=== PATIENT | male | born 1950 | race Native Hawaiian/Other Pacific Islander ===

== ENCOUNTER 2018-06-05 08:37 | Outpatient (CLI) | payer MEDICARE ==
[2018-06-05 11:24] LABS: Hematocrit 40.6 % (35.5-45.6); Hemoglobin 13.8 gm/dl (11.8-15.2); Mean Corpuscular HGB Conc 34 % (32-34); Mean Corpuscular Volume 87 fl (84-94); Platelet Count 240 K/mm3 (140-440); Red Blood Count 4.68 M/mm3 (3.65-5.03); Red Cell Distribution Width 13.7 % (13.2-15.2)
[2018-06-05 11:46] LABS: Alanine Aminotransferase 19 units/L (7-56); Albumin 3.9 g/dL (3.9-5); BUN/Creatinine Ratio 19; Blood Urea Nitrogen 19 mg/dL (9-20); Calcium 7.5 mg/dL (8.4-10.2); Hemolysis Index 3; LDL Cholesterol,Direct 115 mg/dL (50-130)
[2018-06-05 11:59] LABS: Chol/HDL Ratio 4.08 %; HDL Cholesterol 37 mg/dL (40-59)
== END 2018-06-05 08:38 | disposition home or self-care (01) ==
LOC: LAB 08:37
PROVIDERS: ATTEND Internal Medicine
DX: Z00.01 Encounter for general adult medical examination with abnormal findings (principal); I10 Essential (primary) hypertension; E66.01 Morbid (severe) obesity due to excess calories; R73.9 Hyperglycemia, unspecified
CPT/HCPCS: 36415; 80053; 80061; 82306; 82607; 83036; 84443; 85027

== ENCOUNTER 2018-08-05 09:57 | Outpatient (CLI) | payer MEDICARE ==
--- NOTE | 2018-08-05 10:56 | XRay Report ---
BILATERAL KNEES STANDING, 2 VIEWS HISTORY: Primary osteoarthritis of the knee. FINDINGS: Normal bone mineralization. Moderate medial compartment joint space narrowing is identified in both knees. Mild retropatellar spurring is identified in both knees. There is relative sparing of the lateral compartments. No evidence for fracture, bone lesion or osteochondral defect. No significant joint effusions are identified. IMPRESSION: Mild to moderate bicompartmental osteoarthritis as described.
== END 2018-08-05 09:58 | disposition home or self-care (01) ==
LOC: XRAY 09:57
PROVIDERS: ATTEND Orthopaedic Surgery
DX: M17.0 Bilateral primary osteoarthritis of knee (principal); I10 Essential (primary) hypertension
CPT/HCPCS: 73565

== ENCOUNTER 2018-08-21 05:49 | Inpatient (IN) | payer MEDICARE ==
[2018-08-18 11:17] LABS: Basophils # (Auto) 0.1 K/mm3 (0.0-0.1); Basophils % (Auto) 0.6 % (0.0-1.8); Eosinophils # (Auto) 0.1 K/mm3 (0.0-0.4); Eosinophils % (Auto) 1.3 % (0.0-4.3); Hematocrit 41.2 % (35.5-45.6); Hemoglobin 14.2 gm/dl (11.8-15.2); Lymphocytes # (Auto) 1.3 K/mm3 (1.2-5.4); Lymphocytes % (Auto) 12.7 % (13.4-35.0); Mean Corpuscular HGB Conc 34 % (32-34); Mean Corpuscular Volume 87 fl (84-94); Monocytes # (Auto) 0.5 K/mm3 (0.0-0.8); Monocytes % (Auto) 5.4 % (0.0-7.3); Platelet Count 213 K/mm3 (140-440); Red Blood Count 4.74 M/mm3 (3.65-5.03); Red Cell Distribution Width 14.1 % (13.2-15.2)
--- NOTE | 2018-08-18 11:27 | Anesthesia Consultation ---
Anesthesia Consult and Med Hx Date of service: 08/18/18 - Airway Anesthetic Teeth Evaluation: Good ROM Head & Neck: Adequate Mental/Hyoid Distance: Adequate Mallampati Class: Class III Intubation Access Assessment: Possibly Difficult - Pulmonary Exam CTA: Yes - Cardiac Exam Cardiac Exam: RRR - Pre-Operative Health Status ASA Pre-Surgery Classification: ASA2 Proposed Anesthetic Plan: General Nerve Block: Adductor Canal - Pulmonary Hx Smoking: Yes (social smoking only) Hx Asthma: No Hx Respiratory Symptoms: No COPD: No Hx Sleep Apnea: Yes (no CPAP) - Cardiovascular System Hx Hypertension: Yes Hx Heart Attack/AMI: No Hx Percutaneous Transluminal Coronary Angioplasty (PTCA): No - Central Nervous System CVA: No - Gastrointestinal Hx Gastroesophageal Reflux Disease: Yes (diet controlled) - Endocrine Hx Renal Disease: No Hx Liver Disease: No Hx Non-Insulin Dependent Diabetes: Yes Hx Thyroid Disease: No - Other Systems Hx Obesity: Yes - Additional Comments Anesthesia Medical History Comments: No hx anesthetic complications. Granddaughter served as bundle tier and labeler per patient request.
[2018-08-18 11:31] LABS: Alanine Aminotransferase 15 units/L (7-56); Albumin 3.8 g/dL (3.9-5); BUN/Creatinine Ratio 14; Blood Urea Nitrogen 14 mg/dL (9-20); Hemolysis Index 27
[2018-08-21] MEDS ORDERED: SUBLIMAZE IV PRN ×2 (06:00→07:30)
[2018-08-21] MEDS ORDERED: VERSED IV NR (06:00)
[2018-08-21] MEDS ORDERED: ANCEF/STERILE WATER 2 GM/20 ML IV NR (06:00)
[2018-08-21] MEDS ORDERED: NEURONTIN PO NR (06:00)
[2018-08-21] MEDS: LACTATED RINGERS 1,000 ML IV SCH ×2 (06:50→16:08)
[2018-08-21] MEDS ORDERED: MARCAINE 0.5% INFILTRATI ONE ×3 (07:20→08:50)
[2018-08-21] MEDS ORDERED: TORADOL ONE (07:20)
--- NOTE | 2018-08-21 07:20 | Anesthesia Day of Surgery ---
Anesthesia Day of Surgery - Day of Surgery Patient Examined: Yes Patient H&P Reviewed: Yes Patient is NPO: Yes
[2018-08-21] MEDS ORDERED: MARCAINE-EPI 0.5%-1:200,000 INFILTRATI ONE (07:21)
[2018-08-21] MEDS ORDERED: TRANEXAMIC ACID ONE (07:21)
[2018-08-21] MEDS ORDERED: MORPHINE ONE (07:21)
[2018-08-21] MEDS ORDERED: NACL 0.9% 100 ML ONE ×2 (07:21→07:22)
[2018-08-21] MEDS ORDERED: NACL 0.9% 50 ML ONE (07:22)
[2018-08-21] MEDS ORDERED: DIPRIVAN 10 MG/ML IV ONE (07:38)
[2018-08-21] MEDS ORDERED: ZOFRAN ONE ×2 (07:38→10:06)
[2018-08-21] MEDS ORDERED: ZEMURON IV ONE (07:38)
[2018-08-21] MEDS ORDERED: SUBLIMAZE ONE (07:38)
[2018-08-21] MEDS ORDERED: NACL 0.9% 1000 ML 1,000 ML ONE ×2 (08:28→08:29)
[2018-08-21] MEDS ORDERED: LACTATED RINGERS 1,000 ML ONE (08:29)
[2018-08-21] MEDS ORDERED: NACL P/F VIAL (10 ML) 10 ML ONE (08:29)
[2018-08-21] MEDS ORDERED: WATER FOR IRRIG STERILE IR ONE (08:50)
[2018-08-21] MEDS ORDERED: NACL 0.9% IR ONE (08:50)
[2018-08-21] MEDS ORDERED: TORADOL IV ONE (08:50)
[2018-08-21] MEDS ORDERED: MORPHINE IM ONE (08:50)
--- NOTE | 2018-08-21 10:24 | Procedure Note ---
Date of procedure: 08/21/18 Pre-op diagnosis: severe arthritis right knee Post-op diagnosis: same Procedure: Right total knee arthroplasty Procedure The patient was brought to the or after the femoral nerve block and preoperative holding, he was placed in the or table in supine position following induction with Mac anesthesia the patient's right lower extremity was prepped and draped in the usual sterile manner. A timeout procedure was done to identify the patient and the correct operative site The leg was exsanguinated followed by insufflation of the pneumatic tourniquet to 300 mmHg. The midline incision was made centered over the patella this is taken down distally towards due to multiple medical incision was carried down sharply through skin and subcutaneous A sub-brow cyst approach was used after elevating the vastus off the distal femur. The knee was flexed to 90 following O's examination revealed typical where along the medial lateral compartments with peripheral osteophytes and bare bone in some places followinga large drill bit was used to enter the distal femoral canal following this the distal femoral cutting was applied approximately 8-9 mm of bone was resected next the attention was turned to the proximal tibia using the external alignment again 8-9 mL of proximal tibia was resected care was taken to protect the medial and lateral collateral ligaments the cruciate ligaments were sacrificed longus sizing of the femoral component was performed a 3 femoral component was selected this was followed by application of the 4 in 1 cutting block care was taken to resect the anterior posterior as well as solution at this at this point in time the knee was sized A flexion and extension Of 10 mm was selected this was followed by application of the trial components the knee was then taken to or range of motion and was found to be stable following this fixation holes were applied to both the distal femur and proximal tibia care was taken to remove the medial lateral menisci as well as any excess bone and soft tissue debris the knee was then copiously irrigated using pulse lavage The bone cement was mixed the bone bleeding surfaces were wiped dry using sterile gauze for menisci tibial component was inserted using the cement technique the 11 mm polyethylene spacer was applied and secured this was followed by placement of the femoral component again excess cement was removed the knee was then held in flexion ostomy extension until the cement hardened following hardening of cement again a second look was performed and the residual soft tissue N cement debris were removed at this time the knee was then taken through a range of motion and was found to be stable next the Carlos A's incision was repaired using #1 Vicryl in interrupted [id number] suture pattern the subcutaneous and skin were closed in a routine manner. Dressings were applied the patient tolerated the procedure the retinal complications he was then taken to postanesthesia recovery Anesthesia: HATTIE Surgeon: AMARA ST Communications Professional: DAYSI SOSA Estimated blood loss: minimal Pathology: list (bone fragments right knee) Specimen disposition: to lab Condition: stable Disposition: PACU
[2018-08-21] MEDS ORDERED: BLOXIVERZ ONE (10:34)
[2018-08-21] MEDS ORDERED: ROBINUL ONE (10:34)
[2018-08-21] MEDS ORDERED: SODIUM CHLORIDE FLUSH SYRINGE 10 ML IV SCH (11:00)
[2018-08-21] MEDS: ANCEF/NS 1 GM/50 ML 1 GM/50 ML BAG IV SCH ×2 (16:09→23:55)
[2018-08-21] MEDS: MORPHINE IV PRN (16:20)
[2018-08-21] MEDS: ZOFRAN IV PRN (17:08)
--- NOTE | 2018-08-21 17:18 | Post Anesthesia Evaluation ---
- Post Anesthesia Evaluation Patient Participated: Yes Airway Patent: Yes Stable Respiratory Function: Yes Nausea/Vomiting: No Temp > 96.8F: Yes Pain Manageable: Yes Adequeate Hydration: Yes Anesthesia Complications: No Block Receding Appropriately: No (block for post op analgesia)
[2018-08-21] MEDS: NORCO 5/325 PO PRN (23:59)
[2018-08-22] MEDS: LACTATED RINGERS 1,000 ML IV SCH ×2 (00:03→14:36)
[2018-08-22] MEDS: MORPHINE IV PRN ×2 (03:41→11:22)
[2018-08-22] MEDS: IBUPROFEN PO PRN (03:45)
[2018-08-22] MEDS: LOVENOX SUB-Q SCH (09:20)
[2018-08-22] MEDS: NORCO 5/325 PO PRN ×2 (10:17→22:16)
[2018-08-22 10:27] LABS: Hematocrit 32.2 % (35.5-45.6); Hemoglobin 11.2 gm/dl (11.8-15.2)
--- NOTE | 2018-08-22 17:06 | Consultation ---
History of Present Illness - Reason for Consult Consult date: 08/22/18 Medical management of hypertension - History of Present Illness Patient is a 68 yo man with a history of hypertension and OA who presented to [facility] ED for elective Right TKR. Hospitalist consulted for hypertension PMH: as hpi PSH: colonoscopy with polypectomy, prostate bx was benign SH: occassion cigarette, once per month, no ETOH or drug abuse FH: hypertension ROS: Constitutional: denies: fever ENT: denies: throat or neck pain Respiratory: denies: cough, shortness of breath Cardiovascular: denies: chest pain Endocrine: denies unexplained weight loss or gain Gastrointestinal: denies: abdominal pain, nausea Genitourinary: denies: dysuria Rectal: denies no incontinence, no bleeding, no itching, no discharge Musculoskeletal: denies swelling, myaglia, muscle weakness Skin: denies: rash Neurological: denies: headache Hematological/Lymphatic: denies: easy bleeding or easy bruising Allergic/Immunologic: no urticaria, no allergic rhinitis, no anaphylaxis Psych: denies sadness or hopelessness, SI/HI Medications and Allergies Allergies Allergy/AdvReac Type Severity Reaction Status Date / Time No Known Allergies Allergy Unverified 02/03/14 11:50 Home Medications Medication Instructions Recorded Confirmed Last Taken Type Losartan [Cozaar] 100 mg PO QDAY 08/18/18 08/21/18 08/21/18 05:00 History NIFEdipine [Nifedipine ER] 60 mg PO DAILY 08/18/18 08/21/18 08/21/18 05:00 History Ranitidine HCl [Zantac] 150 mg PO PRN PRN 08/18/18 08/18/18 Unknown History metFORMIN [Glucophage] 500 mg PO QHS 08/18/18 08/21/18 08/20/18 20:00 History Active Meds: Active Medications Acetaminophen/Hydrocodone Bitart ([place] 5/325) 1 each PO Q6H PRN PRN Reason: Pain, Moderate (4-6) Last Admin: 08/22/18 10:17 Dose: 1 each Documented by: Enoxaparin Sodium (Lovenox) 40 mg SUB-Q QDAY SHARAN Last Admin: 08/22/18 09:20 Dose: 40 mg Documented by: Fentanyl (Sublimaze) 100 mcg IV ONCE PRN PRN Reason: sedation for nerve block Last Admin: 08/21/18 07:34 Dose: 100 mcg Documented by: Lactated Ringer's (Lactated Ringers) 1,000 mls @ 100 mls/hr IV DIRECT SHARAN Last Admin: 08/22/18 14:36 Dose: 100 mls/hr Documented by: Ibuprofen (Ibuprofen) 600 mg PO Q6H PRN PRN Reason: Pain, Mild (1-3) Last Admin: 08/22/18 03:45 Dose: 600 mg Documented by: Morphine Sulfate (Morphine) 4 mg IV Q4H PRN PRN Reason: Pain , Severe (7-10) Last Admin: 08/22/18 11:22 Dose: 4 mg Documented by: Ondansetron HCl (Zofran) 4 mg IV Q8H PRN PRN Reason: Nausea And Vomiting Last Admin: 08/21/18 17:08 Dose: 4 mg Documented by: Sodium Chloride (Sodium Chloride Flush Syringe 10 Ml) 10 ml IV PRN SHARAN Exam - Physical Exam Narrative exam: Gen: WDWN, NAD, Awake, Alert, Orientated HEENT: NCAT, EOMI, PERRL, OP Clear Neck: supple, no adenopathy, no thyromegaly, no JVD CVS/Heart: RRR, normal S1S2, pulses present bilaterally Chest/Lungs: CTA B, Symmetrical chest expansion, good air entry bilaterally GI/Abdomen: soft, NTND, good bowel sounds, no guarding or rebound /Bladder: no suprapubic tenderness, no CVA or paraspinal tenderness Extermity/Skin: right knee swelling no obvious rash MSK: FROM x 3, right knee LROM Neuro: CN 2-12 grossly intact, no new focal deficits Psych: calm - Constitutional Vitals: Temp Pulse Resp BP Pulse Ox 98.7 F 74 19 137/68 97 08/22/18 08:20 08/22/18 08:21 08/22/18 08:20 08/22/18 03:26 08/22/18 08:21 Results - Labs CBC & Chem 7: 08/22/18 09:34 08/18/18 10:45 Labs: Abnormal lab results 08/22/18 Range/Units 09:34 Hgb 11.2 L (11.8-15.2) gm/dl Hct 32.2 L (35.5-45.6) % Assessment and Plan Patient is a 68 yo man with a history of hypertension and OA who presented to [facility] ED for elective Right TKR. Hospitalist consulted for hypertension Hypertension: low salt diet OA s/p Right TKR: per Ortho Drop HCT: monitor h/h, repeat cbc in am DVT per Ortho
[2018-08-23] MEDS: NORCO 5/325 PO PRN ×3 (07:10→22:15)
[2018-08-23] MEDS: LOVENOX SUB-Q SCH (10:22)
[2018-08-23] MEDS: IBUPROFEN PO PRN ×2 (10:23→17:35)
--- NOTE | 2018-08-23 14:53 | Progress Note ---
Assessment and Plan Assessment and plan: Patient is a 68 yo man with a history of hypertension and OA who presented to [facility] ED for elective Right TKR. Hospitalist consulted for hypertension Hypertension: low salt diet OA s/p Right TKR: per Ortho Drop HCT: monitor h/h, repeat cbc in am DVT per Ortho History Interval history: Patient was seen and examined. Follow-up on current diagnosis Hypertension. No overnight events reported to me. Patient denies any chest pain, shortness breath, nausea/vomiting or severe headaches. Imaging, nursing note, chart, labs and old chart reviewed. Discussed with patient. 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 Hospitalist Physical - Physical exam Narrative exam: Gen: WDWN, NAD, Awake, Alert, Orientated HEENT: NCAT, EOMI, PERRL, OP Clear Neck: supple, no adenopathy, no thyromegaly, no JVD CVS/Heart: RRR, normal S1S2, pulses present bilaterally Chest/Lungs: CTA B, Symmetrical chest expansion, good air entry bilaterally GI/Abdomen: soft, NTND, good bowel sounds, no guarding or rebound /Bladder: no suprapubic tenderness, no CVA or paraspinal tenderness Extermity/Skin: right knee and leg swelling no obvious rash MSK: FROM x 3, right knee LROM Neuro: CN 2-12 grossly intact, no new focal deficits Psych: calm - Constitutional Vitals: Temp Pulse Resp BP Pulse Ox 99.0 F 73 18 155/82 95 08/23/18 08:19 08/23/18 08:19 08/23/18 08:19 08/23/18 08:19 08/23/18 10:00 Results - Labs CBC & Chem 7: 08/22/18 09:34 08/18/18 10:45 Labs: Laboratory Last Values WBC 9.9 K/mm3 (4.5-11.0) 08/18/18 10:45 RBC 4.74 M/mm3 (3.65-5.03) 08/18/18 10:45 Hgb 11.2 gm/dl (11.8-15.2) L 08/22/18 09:34 Hct 32.2 % (35.5-45.6) L 08/22/18 09:34 MCV 87 fl (84-94) 08/18/18 10:45 MCH 30 pg (28-32) 08/18/18 10:45 MCHC 34 % (32-34) 08/18/18 10:45 RDW 14.1 % (13.2-15.2) 08/18/18 10:45 Plt Count 213 K/mm3 (140-440) 08/18/18 10:45 Lymph % (Auto) 12.7 % (13.4-35.0) L 08/18/18 10:45 [place] % (Auto) 5.4 % (0.0-7.3) 08/18/18 10:45 Eos % (Auto) 1.3 % (0.0-4.3) 08/18/18 10:45 Baso % (Auto) 0.6 % (0.0-1.8) 08/18/18 10:45 Lymph # 1.3 K/mm3 (1.2-5.4) 08/18/18 10:45 [place] # 0.5 K/mm3 (0.0-0.8) 08/18/18 10:45 Eos # 0.1 K/mm3 (0.0-0.4) 08/18/18 10:45 Baso # 0.1 K/mm3 (0.0-0.1) 08/18/18 10:45 Seg Neutrophils % 80.0 % (40.0-70.0) H 08/18/18 10:45 Seg Neutrophils # 7.9 K/mm3 (1.8-7.7) H 08/18/18 10:45 Sodium 138 mmol/L (137-145) 08/18/18 10:45 Potassium 3.7 mmol/L (3.6-5.0) 08/18/18 10:45 Chloride 99.3 mmol/L (98-107) 08/18/18 10:45 Carbon Dioxide 26 mmol/L (22-30) 08/18/18 10:45 16 mmol/L 08/18/18 10:45 BUN 14 mg/dL (9-20) 08/18/18 10:45 1.0 mg/dL (0.8-1.5) 08/18/18 10:45 Estimated GFR > 60 ml/min 08/18/18 10:45 14 % 08/18/18 10:45 Glucose 101 mg/dL (75-100) H 08/18/18 10:45 POC Glucose 113 (70-105) H 08/21/18 10:48 Calcium 8.0 mg/dL (8.4-10.2) L 08/18/18 10:45 0.80 mg/dL (0.1-1.2) 08/18/18 10:45 AST 16 units/L (5-40) 08/18/18 10:45 ALT 15 units/L (7-56) 08/18/18 10:45 96 units/L (35-129) 08/18/18 10:45 7.5 g/dL (6.3-8.2) 08/18/18 10:45 3.8 g/dL (3.9-5) L 08/18/18 10:45 1.0 % 08/18/18 10:45 Active Medications - Current Medications Current Medications: Generic Name Dose Route Start Last Admin Trade Name Freq PRN Reason Stop Dose Admin Acetaminophen/Hydrocodone Bitart 1 each 08/21/18 10:18 08/23/18 13:17 [place] 5/325 PO 1 each Q6H PRN Administration Pain, Moderate (4-6) Enoxaparin Sodium 40 mg 08/22/18 10:00 08/23/18 10:22 Lovenox SUB-Q 40 mg QDAY SHARAN Administration Fentanyl 100 mcg 08/21/18 06:00 08/21/18 07:34 Sublimaze IV 100 mcg ONCE PRN Administration sedation for nerve block Ibuprofen 600 mg 08/21/18 10:18 08/23/18 10:23 Ibuprofen PO 600 mg Q6H PRN Administration Pain, Mild (1-3) Morphine Sulfate 4 mg 08/21/18 10:18 08/22/18 11:22 Morphine IV 4 mg Q4H PRN Administration Pain , Severe (7-10) Ondansetron HCl 4 mg 08/21/18 10:18 08/21/18 17:08 Zofran IV 4 mg Q8H PRN Administration Nausea And Vomiting Sodium Chloride 10 ml 08/21/18 11:00 Sodium Chloride Flush Syringe 10 Ml IV PRN SHARAN
[2018-08-23] MEDS: PROCARDIA XL PO SCH (22:15)
[2018-08-24] MEDS: NORCO 5/325 PO PRN ×4 (04:59→22:31)
[2018-08-24 05:09] LABS: BUN/Creatinine Ratio 14; Blood Urea Nitrogen 17 mg/dL (9-20); Calcium 7.2 mg/dL (8.4-10.2); Hemolysis Index 2
[2018-08-24 05:12] LABS: Hematocrit 33.3 % (35.5-45.6); Hemoglobin 11.4 gm/dl (11.8-15.2); Mean Corpuscular HGB Conc 34 % (32-34); Mean Corpuscular Volume 86 fl (84-94); Platelet Count 205 K/mm3 (140-440); Red Blood Count 3.86 M/mm3 (3.65-5.03)
[2018-08-24] MEDS: LOVENOX SUB-Q SCH ×2 (07:35→10:00)
[2018-08-24] MEDS: IBUPROFEN PO PRN ×3 (07:36→20:03)
[2018-08-24] MEDS: PROCARDIA XL PO SCH ×2 (07:48→10:00)
[2018-08-24] MEDS ORDERED: K-DUR PO ONE (09:50)
--- NOTE | 2018-08-24 10:51 | XRay Report ---
PROCEDURE: XR KNEE 1-2V RT HISTORY: Post op evaluation. TECHNIQUE: Right knee radiograph, 2 views. COMPARISONS: None currently available. FINDINGS: Total arthroplasty is intact. No loosening or dislodgement. There is no acute fracture. There is no evidence for healing fracture. There is no acute dislocation. There is no cortical destruction to suggest osteomyelitis. There are no suspicious osseous lesions. Soft tissues: Subcutaneous gas, swelling, and joint effusion IMPRESSION: * No acute osseous findings. * Likely post surgical changes in the soft tissues. * Hardware is intact. This document is electronically signed by Anam Story MD., August 24 2018 10:49:38 AM ET
--- NOTE | 2018-08-24 11:32 | Progress Note ---
Assessment and Plan Assessment and plan: Patient is a 68 yo man with a history of hypertension and OA who presented to [facility] ED for elective Right TKR. Hospitalist consulted for hypertension Hypertension: low salt diet OA s/p Right TKR: per Ortho Drop HCT, steady Hypokalemia, replete DVT per Ortho Dispo per Ortho History Interval history: Patient was seen and examined. Follow-up on current diagnosis Hypertension. No overnight events reported to me. Patient denies any chest pain, shortness breath, nausea/vomiting or severe headaches. Imaging, nursing note, chart, labs and old chart reviewed. Discussed with patient. Family at bedside were the Umbrella Supervisor Hospitalist Physical - Physical exam Narrative exam: Gen: WDWN, NAD, Awake, Alert, Orientated HEENT: NCAT, EOMI, PERRL, OP Clear Neck: supple, no adenopathy, no thyromegaly, no JVD CVS/Heart: RRR, normal S1S2, pulses present bilaterally Chest/Lungs: CTA B, Symmetrical chest expansion, good air entry bilaterally GI/Abdomen: soft, NTND, good bowel sounds, no guarding or rebound /Bladder: no suprapubic tenderness, no CVA or paraspinal tenderness Extermity/Skin: right knee and leg swelling no obvious rash MSK: FROM x 3, right knee LROM Neuro: CN 2-12 grossly intact, no new focal deficits Psych: calm - Constitutional Vitals: Temp Pulse Resp BP Pulse Ox 98.2 F 75 16 117/64 94 08/24/18 07:47 08/24/18 07:47 08/24/18 07:47 08/24/18 07:47 08/24/18 08:57 Results - Labs CBC & Chem 7: 08/24/18 04:11 08/24/18 04:11 Labs: Laboratory Last Values WBC 11.5 K/mm3 (4.5-11.0) H 08/24/18 04:11 RBC 3.86 M/mm3 (3.65-5.03) 08/24/18 04:11 Hgb 11.4 gm/dl (11.8-15.2) L 08/24/18 04:11 Hct 33.3 % (35.5-45.6) L 08/24/18 04:11 MCV 86 fl (84-94) 08/24/18 04:11 MCH 30 pg (28-32) 08/24/18 04:11 MCHC 34 % (32-34) 08/24/18 04:11 RDW 14.0 % (13.2-15.2) 08/24/18 04:11 Plt Count 205 K/mm3 (140-440) 08/24/18 04:11 Lymph % (Auto) 12.7 % (13.4-35.0) L 08/18/18 10:45 [place] % (Auto) 5.4 % (0.0-7.3) 08/18/18 10:45 Eos % (Auto) 1.3 % (0.0-4.3) 08/18/18 10:45 Baso % (Auto) 0.6 % (0.0-1.8) 08/18/18 10:45 Lymph # 1.3 K/mm3 (1.2-5.4) 08/18/18 10:45 [place] # 0.5 K/mm3 (0.0-0.8) 08/18/18 10:45 Eos # 0.1 K/mm3 (0.0-0.4) 08/18/18 10:45 Baso # 0.1 K/mm3 (0.0-0.1) 08/18/18 10:45 Seg Neutrophils % 80.0 % (40.0-70.0) H 08/18/18 10:45 Seg Neutrophils # 7.9 K/mm3 (1.8-7.7) H 08/18/18 10:45 Sodium 144 mmol/L (137-145) 08/24/18 04:11 Potassium 3.2 mmol/L (3.6-5.0) L 08/24/18 04:11 Chloride 99.0 mmol/L (98-107) 08/24/18 04:11 Carbon Dioxide 31 mmol/L (22-30) H 08/24/18 04:11 17 mmol/L 08/24/18 04:11 BUN 17 mg/dL (9-20) 08/24/18 04:11 1.2 mg/dL (0.8-1.5) 08/24/18 04:11 Estimated GFR > 60 ml/min 08/24/18 04:11 14 % 08/24/18 04:11 Glucose 114 mg/dL (75-100) H 08/24/18 04:11 POC Glucose 113 (70-105) H 08/21/18 10:48 Calcium 7.2 mg/dL (8.4-10.2) L 08/24/18 04:11 0.80 mg/dL (0.1-1.2) 08/18/18 10:45 AST 16 units/L (5-40) 08/18/18 10:45 ALT 15 units/L (7-56) 08/18/18 10:45 96 units/L (35-129) 08/18/18 10:45 7.5 g/dL (6.3-8.2) 08/18/18 10:45 3.8 g/dL (3.9-5) L 08/18/18 10:45 1.0 % 08/18/18 10:45 Active Medications - Current Medications Current Medications: Generic Name Dose Route Start Last Admin Trade Name Freq PRN Reason Stop Dose Admin Acetaminophen/Hydrocodone Bitart 1 each 08/21/18 10:18 08/24/18 10:57 [place] 5/325 PO 1 each Q6H PRN Administration Pain, Moderate (4-6) Enoxaparin Sodium 40 mg 08/22/18 10:00 08/24/18 10:00 Lovenox SUB-Q Not Given QDAY [facility] Fentanyl 100 mcg 08/21/18 06:00 08/21/18 07:34 Sublimaze IV 100 mcg ONCE PRN Administration sedation for nerve block Ibuprofen 600 mg 08/21/18 10:18 08/24/18 07:36 Ibuprofen PO 600 mg Q6H PRN Administration Pain, Mild (1-3) Morphine Sulfate 4 mg 08/21/18 10:18 08/22/18 11:22 Morphine IV 4 mg Q4H PRN Administration Pain , Severe (7-10) Nifedipine 60 mg 08/23/18 22:00 08/24/18 10:00 Procardia Xl PO Not Given DAILY [facility] Ondansetron HCl 4 mg 08/21/18 10:18 08/21/18 17:08 Zofran IV 4 mg Q8H PRN Administration Nausea And Vomiting Sodium Chloride 10 ml 08/21/18 11:00 Sodium Chloride Flush Syringe 10 Ml IV PRN SHARAN
[2018-08-25 04:51] LABS: Hematocrit 31.9 % (35.5-45.6); Hemoglobin 10.9 gm/dl (11.8-15.2); Mean Corpuscular HGB Conc 34 % (32-34); Mean Corpuscular Volume 88 fl (84-94); Platelet Count 232 K/mm3 (140-440); Red Blood Count 3.64 M/mm3 (3.65-5.03); Red Cell Distribution Width 14.3 % (13.2-15.2)
[2018-08-25 05:03] LABS: BUN/Creatinine Ratio 20; Blood Urea Nitrogen 22 mg/dL (9-20); Calcium 7.3 mg/dL (8.4-10.2); Hemolysis Index 4
[2018-08-25] MEDS: NORCO 5/325 PO PRN ×2 (07:40→13:32)
[2018-08-25] MEDS: PROCARDIA XL PO SCH ×2 (07:41→10:26)
[2018-08-25] MEDS: LOVENOX SUB-Q SCH ×2 (07:42→10:26)
--- NOTE | 2018-08-25 08:34 | Discharge Summary ---
Providers - Providers Date of Admission: 08/21/18 05:49 Date of discharge: 08/29/18 Attending physician: AMARA ST MD 08/21/18 10:18 Consult to Case Management [CONS] Routine Services Needed at Discharge: Home Health Services Physical Therapy 08/21/18 10:21 Physical Therapy Evaluation and Treat [CONS] Routine Comment: Reason For Exam: postoperative evaluation Weight bearing status?: Full wt bearing Assistive devices?: Yes If so list: Walker 08/21/18 21:16 Consult to Physician [CONS] Routine Comment: Consulting Provider: ROSANGELA SIMENTAL Physician Instructions: post op medical mgmt Reason For Exam: medical management Primary care physician: YASEMIN COHEN Hospitalization Reason for admission: Right knee pain Condition: Stable Procedures: Right total knee replacement Hospital course: 68-year-old male who complains of bilateral knee pain and stiffness issue tried conservative treatment with little to no relief plain x-rays were done preoperatively showing moderately severe osteoarthritis right knee patient was admitted and was taken to the operating room where a right total knee replacement was done without complications postoperatively he was seen and evaluated by physical therapy where he was given instructions on daily weightbearing and range of motion exercises. Arrangements were made for home physical therapy via case management services. On post op day 4, he complain of right calf pain and swelling, doppler ultrasound done revealing DVT in posterior tibial vein. After consultation with internal medicine service he was placed on oral antithrombolytics to go along with previous IM lovenox. Arrangements for discharge to home were made but patient's family members requested in-patient rehab therefore requests made but patient's insurance company objected wanting instead home PT and nursing services. After multiple attempts, he eventually discharged to home Disposition: [id number] HOME UNDER [facility] Core Measure Documentation - Palliative Care Palliative Care/ Comfort Measures: Not Applicable - Core Measures Any of the following diagnoses?: DVT/PE, none - VTE Discharge Requirements Deep Vein Thrombosis/Pulmonary Embolism Present on Admission: Yes Has pt received <5 days of overlap therapy or INR<2.0: Yes Anticoagulant overlap therapy prescribed at discharge: Yes Contraindication No Overlap Therapy order at DC: Medical Contraindication - Acute MD Discharge Requirements Aspirin at discharge: No Reason for no aspirin on DC: Medical contraindication - Heart Failure Discharge Requirements MALLY/ARB for LVSD if EF <40%: No Reason for no MALLY/ARB: Medical contraindication - Stroke Discharge Requirements Statin for LDL = or >70 mg/dl on DC: No Reason for no statin on DC: Medical Contraindication Anticoag for atrial fib/atrial flutter: Not Applicable Exam - Physical Exam Narrative exam: Right knee- postop dressings intact no signs of infection negative Homans sign - Constitutional Vitals: Temp Pulse Resp BP Pulse Ox 97.5 F L 67 20 139/74 93 08/25/18 07:39 08/25/18 07:39 08/25/18 07:39 08/25/18 07:39 08/25/18 07:39 General appearance: Present: no acute distress, well-nourished - EENT Eyes: Present: PERRL ENT: hearing intact, clear oral mucosa - Neck Neck: Present: supple, normal ROM - Respiratory Respiratory effort: normal Respiratory: bilateral: CTA - Cardiovascular Heart Sounds: Present: S1 & S2. Absent: rub, click - Extremities Extremities: pulses symmetrical, No edema Peripheral Pulses: within normal limits - Abdominal General gastrointestinal: Present: soft, non-tender, non-distended, normal bowel sounds Male genitourinary: Present: normal - Integumentary Integumentary: Present: clear, warm, dry - Musculoskeletal Musculoskeletal: gait normal, strength equal bilaterally - Psychiatric Psychiatric: appropriate mood/affect, intact judgment & insight - Neurologic Neurologic: CNII-XII intact, moves all extremities Plan Activity: advance as tolerated Weight Bearing Status: Weight Bear as Tolerated Diet: regular Wound: keep clean and dry Special Instructions: physical therapy Durable Medical Equipment Needed Upon Discharge: Walker-Standard, Bedside Commode, Hospital Bed Follow up with: YASEMIN COHEN MD [Primary Care Provider] - [address] MD [Staff Physician] - 7 Days Prescriptions: Apixaban [Eliquis] 10 mg PO Q12HR 6 Days tablet Apixaban [Eliquis] 5 mg PO Q12HR 30 Days tablet Oxycodone HCl/Acetaminophen [Percocet 7.5/325 mg] 1 each PO Q6HR PRN #30 tablet PRN Reason: Pain
--- NOTE | 2018-08-25 09:18 | Progress Note ---
Assessment and Plan Assessment and plan: Patient is a 68 yo man with a history of hypertension and OA who presented to [facility] ED for elective Right TKR. Hospitalist consulted for hypertension Hypertension: low salt diet OA s/p Right TKR: per Ortho Drop HCT, steady Hypokalemia, replete DVT per Ortho Dispo per Ortho History Interval history: Patient was seen and examined. Follow-up on current diagnosis Hypertension. No overnight events reported to me. Patient denies any chest pain, shortness breath, nausea/vomiting or severe headaches. Imaging, nursing note, chart, labs and old chart reviewed. Discussed with patient. Family at bedside were the [employer] Work[employer] Hospitalist Physical - Physical exam Narrative exam: Gen: WDWN, NAD, Awake, Alert, Orientated HEENT: NCAT, EOMI, PERRL, OP Clear Neck: supple, no adenopathy, no thyromegaly, no JVD CVS/Heart: RRR, normal S1S2, pulses present bilaterally Chest/Lungs: CTA B, Symmetrical chest expansion, good air entry bilaterally GI/Abdomen: soft, NTND, good bowel sounds, no guarding or rebound /Bladder: no suprapubic tenderness, no CVA or paraspinal tenderness Extermity/Skin: right knee and leg swelling no obvious rash MSK: FROM x 3, right knee LROM Neuro: CN 2-12 grossly intact, no new focal deficits Psych: calm - Constitutional Vitals: Temp Pulse Resp BP Pulse Ox 97.5 F L 67 20 139/74 93 08/25/18 07:39 08/25/18 07:39 08/25/18 07:39 08/25/18 07:39 08/25/18 07:39 General appearance: Present: no acute distress, well-nourished Results - Labs CBC & Chem 7: 08/25/18 04:16 08/25/18 04:16 Labs: Laboratory Last Values WBC 8.5 K/mm3 (4.5-11.0) 08/25/18 04:16 RBC 3.64 M/mm3 (3.65-5.03) L 08/25/18 04:16 Hgb 10.9 gm/dl (11.8-15.2) L 08/25/18 04:16 Hct 31.9 % (35.5-45.6) L 08/25/18 04:16 MCV 88 fl (84-94) 08/25/18 04:16 MCH 30 pg (28-32) 08/25/18 04:16 MCHC 34 % (32-34) 08/25/18 04:16 RDW 14.3 % (13.2-15.2) 08/25/18 04:16 Plt Count 232 K/mm3 (140-440) 08/25/18 04:16 Lymph % (Auto) 12.7 % (13.4-35.0) L 08/18/18 10:45 [place] % (Auto) 5.4 % (0.0-7.3) 08/18/18 10:45 Eos % (Auto) 1.3 % (0.0-4.3) 08/18/18 10:45 Baso % (Auto) 0.6 % (0.0-1.8) 08/18/18 10:45 Lymph # 1.3 K/mm3 (1.2-5.4) 08/18/18 10:45 [place] # 0.5 K/mm3 (0.0-0.8) 08/18/18 10:45 Eos # 0.1 K/mm3 (0.0-0.4) 08/18/18 10:45 Baso # 0.1 K/mm3 (0.0-0.1) 08/18/18 10:45 Seg Neutrophils % 80.0 % (40.0-70.0) H 08/18/18 10:45 Seg Neutrophils # 7.9 K/mm3 (1.8-7.7) H 08/18/18 10:45 Sodium 144 mmol/L (137-145) 08/25/18 04:16 Potassium 3.5 mmol/L (3.6-5.0) L 08/25/18 04:16 Chloride 101.4 mmol/L (98-107) 08/25/18 04:16 Carbon Dioxide 33 mmol/L (22-30) H 08/25/18 04:16 13 mmol/L 08/25/18 04:16 BUN 22 mg/dL (9-20) H 08/25/18 04:16 1.1 mg/dL (0.8-1.5) 08/25/18 04:16 Estimated GFR > 60 ml/min 08/25/18 04:16 20 % 08/25/18 04:16 Glucose 114 mg/dL (75-100) H 08/25/18 04:16 POC Glucose 113 (70-105) H 08/21/18 10:48 Calcium 7.3 mg/dL (8.4-10.2) L 08/25/18 04:16 0.80 mg/dL (0.1-1.2) 08/18/18 10:45 AST 16 units/L (5-40) 08/18/18 10:45 ALT 15 units/L (7-56) 08/18/18 10:45 96 units/L (35-129) 08/18/18 10:45 7.5 g/dL (6.3-8.2) 08/18/18 10:45 3.8 g/dL (3.9-5) L 08/18/18 10:45 1.0 % 08/18/18 10:45 Active Medications - Current Medications Current Medications: Generic Name Dose Route Start Last Admin Trade Name Freq PRN Reason Stop Dose Admin Acetaminophen/Hydrocodone Bitart 1 each 08/21/18 10:18 08/25/18 07:40 [place] 5/325 PO 1 each Q6H PRN Administration Pain, Moderate (4-6) Enoxaparin Sodium 40 mg 08/22/18 10:00 08/25/18 07:42 Lovenox SUB-Q 40 mg QDAY SHARAN Administration Fentanyl 100 mcg 08/21/18 06:00 08/21/18 07:34 Sublimaze IV 100 mcg ONCE PRN Administration sedation for nerve block Ibuprofen 600 mg 08/21/18 10:18 08/24/18 20:03 Ibuprofen PO 600 mg Q6H PRN Administration Pain, Mild (1-3) Morphine Sulfate 4 mg 08/21/18 10:18 08/22/18 11:22 Morphine IV 4 mg Q4H PRN Administration Pain , Severe (7-10) Nifedipine 60 mg 08/23/18 22:00 08/25/18 07:41 Procardia Xl PO 60 mg DAILY SHARAN Administration Ondansetron HCl 4 mg 08/21/18 10:18 08/21/18 17:08 Zofran IV 4 mg Q8H PRN Administration Nausea And Vomiting Sodium Chloride 10 ml 06/20/19 11:00 Sodium Chloride Flush Syringe 10 Ml IV PRN SHARAN
[2018-08-25] MEDS ORDERED: K-DUR PO ONE (10:30)
--- NOTE | 2018-08-25 10:32 | Vascular Lab Report ---
PROCEDURE: VL VENOUS DUPLEX LE RT TECHNIQUE: Grayscale, color flow and spectral waveform imaging performed of right lower extremity ve ins. HISTORY: right calf pain/swelling s/p Rt TKR COMPARISON: None FINDINGS: There is noncompressibility of right posterior tibial and peroneal veins. No flow seen in these areas . This is compatible with calf DVTs, likely acute. There is appropriate flow and augmentation involving right common femoral vein to the popliteal vein. IMPRESSION: DVT involving right posterior tibial and peroneal veins. This document is electronically signed by Lisseth Garcia MD., August 25 2018 10:30:52 AM ET
[2018-08-25] MEDS: ELIQUIS PO SCH ×2 (12:24→22:11)
[2018-08-25] MEDS: MORPHINE IV PRN ×2 (17:09→22:08)
[2018-08-25] MEDS: ZOFRAN IV PRN (17:11)
[2018-08-26] MEDS: MORPHINE IV PRN ×2 (03:02→17:05)
[2018-08-26] MEDS: PROCARDIA XL PO SCH (09:53)
[2018-08-26] MEDS: ELIQUIS PO SCH ×2 (09:54→21:23)
[2018-08-26] MEDS: NORCO 5/325 PO PRN ×3 (09:59→21:23)
--- NOTE | 2018-08-26 13:34 | Progress Note ---
Assessment and Plan Assessment and plan: Patient is a 68 yo man with a history of hypertension and OA who presented to [facility] ED for elective Right TKR. Hospitalist consulted for hypertension Right lower ext acute DVT: Started on Eliquis. Plan discussed with the patient. Considering the patient was on dvt prophylaxis with this, will recommend outpatient hematology eval Hypertension: low salt diet OA s/p Right TKR: per Ortho Drop HCT, steady Hypokalemia, replete DVT per Ortho Dispo per Ortho History Interval history: Patient seen and examined, resting comfortable but later today began to complain of pain in the legs making discharge to be held By the surgeon Hospitalist Physical - Physical exam Narrative exam: Gen: WDWN, NAD, Awake, Alert, Oriented, HEENT: NCAT, EOMI, PERRL, OP Clear Neck: supple, no adenopathy, no thyromegaly, no JVD CVS/Heart: RRR, normal S1S2, pulses present bilaterally Chest/Lungs: CTA B, Symmetrical chest expansion, good air entry bilaterally GI/Abdomen: soft, NTND, good bowel sounds, no guarding or rebound /Bladder: no suprapubic tenderness, no CVA or paraspinal tenderness Extermity/Skin: right knee and leg swelling no obvious rash MSK: FROM x 3, right knee LROM Neuro: CN 2-12 grossly intact, no new focal deficits Psych: calm - Constitutional Vitals: Temp Pulse Resp BP Pulse Ox 99.4 F 68 20 125/72 94 08/26/18 07:16 08/26/18 07:16 08/26/18 07:16 08/26/18 07:16 08/26/18 07:16 General appearance: Present: no acute distress, well-nourished Results - Labs CBC & Chem 7: 08/25/18 04:16 08/25/18 04:16 Labs: Laboratory Last Values WBC 8.5 K/mm3 (4.5-11.0) 08/25/18 04:16 RBC 3.64 M/mm3 (3.65-5.03) L 08/25/18 04:16 Hgb 10.9 gm/dl (11.8-15.2) L 08/25/18 04:16 Hct 31.9 % (35.5-45.6) L 08/25/18 04:16 MCV 88 fl (84-94) 08/25/18 04:16 MCH 30 pg (28-32) 08/25/18 04:16 MCHC 34 % (32-34) 08/25/18 04:16 RDW 14.3 % (13.2-15.2) 08/25/18 04:16 Plt Count 232 K/mm3 (140-440) 08/25/18 04:16 Lymph % (Auto) 12.7 % (13.4-35.0) L 08/18/18 10:45 [place] % (Auto) 5.4 % (0.0-7.3) 08/18/18 10:45 Eos % (Auto) 1.3 % (0.0-4.3) 08/18/18 10:45 Baso % (Auto) 0.6 % (0.0-1.8) 08/18/18 10:45 Lymph # 1.3 K/mm3 (1.2-5.4) 08/18/18 10:45 [place] # 0.5 K/mm3 (0.0-0.8) 08/18/18 10:45 Eos # 0.1 K/mm3 (0.0-0.4) 08/18/18 10:45 Baso # 0.1 K/mm3 (0.0-0.1) 08/18/18 10:45 Seg Neutrophils % 80.0 % (40.0-70.0) H 08/18/18 10:45 Seg Neutrophils # 7.9 K/mm3 (1.8-7.7) H 08/18/18 10:45 Sodium 144 mmol/L (137-145) 08/25/18 04:16 Potassium 3.5 mmol/L (3.6-5.0) L 08/25/18 04:16 Chloride 101.4 mmol/L (98-107) 08/25/18 04:16 Carbon Dioxide 33 mmol/L (22-30) H 08/25/18 04:16 13 mmol/L 08/25/18 04:16 BUN 22 mg/dL (9-20) H 08/25/18 04:16 1.1 mg/dL (0.8-1.5) 08/25/18 04:16 Estimated GFR > 60 ml/min 08/25/18 04:16 20 % 08/25/18 04:16 Glucose 114 mg/dL (75-100) H 08/25/18 04:16 POC Glucose 113 (70-105) H 08/21/18 10:48 Calcium 7.3 mg/dL (8.4-10.2) L 08/25/18 04:16 0.80 mg/dL (0.1-1.2) 08/18/18 10:45 AST 16 units/L (5-40) 08/18/18 10:45 ALT 15 units/L (7-56) 08/18/18 10:45 96 units/L (35-129) 08/18/18 10:45 7.5 g/dL (6.3-8.2) 08/18/18 10:45 3.8 g/dL (3.9-5) L 08/18/18 10:45 1.0 % 08/18/18 10:45 Active Medications - Current Medications Current Medications: Generic Name Dose Route Start Last Admin Trade Name Freq PRN Reason Stop Dose Admin Acetaminophen/Hydrocodone Bitart 1 each 08/21/18 10:18 08/26/18 09:59 [place] 5/325 PO 1 each Q6H PRN Administration Pain, Moderate (4-6) Apixaban 10 mg 08/25/18 12:00 08/26/18 09:54 Eliquis PO 08/31/18 22:01 10 mg Q12HR SHARAN Administration Protocol Apixaban 5 mg 09/01/18 10:00 Eliquis PO Q12HR SHARAN Fentanyl 100 mcg 08/21/18 06:00 08/21/18 07:34 Sublimaze IV 100 mcg ONCE PRN Administration sedation for nerve block Morphine Sulfate 4 mg 08/21/18 10:18 08/26/18 03:02 Morphine IV 4 mg Q4H PRN Administration Pain , Severe (7-10) Nifedipine 60 mg 08/23/18 22:00 08/26/18 09:53 Procardia Xl PO 60 mg DAILY SHARAN Administration Ondansetron HCl 4 mg 08/21/18 10:18 08/25/18 17:11 Zofran IV 4 mg Q8H PRN Administration Nausea And Vomiting Sodium Chloride 10 ml 08/21/18 11:00 Sodium Chloride Flush Syringe 10 Ml IV PRN SHARAN
[2018-08-27] MEDS: MORPHINE IV PRN ×4 (01:03→15:30)
[2018-08-27] MEDS: PROCARDIA XL PO SCH (10:16)
[2018-08-27] MEDS: ELIQUIS PO SCH ×2 (10:16→21:58)
[2018-08-27] MEDS: NORCO 5/325 PO PRN ×2 (13:18→22:01)
--- NOTE | 2018-08-27 14:50 | Progress Note ---
Assessment and Plan Assessment and plan: Patient is a 68 yo man with a history of hypertension and OA who presented to [facility] ED for elective Right TKR. Hospitalist consulted for hypertension Right lower ext acute DVT: Started on Eliquis. Plan discussed with the patient. Considering the patient was on dvt prophylaxis with this, will recommend outpatient hematology eval Hypertension: low salt diet OA s/p Right TKR: per Ortho Drop HCT, steady Right knee pain: Hypokalemia, replete DVT per Ortho Dispo per Ortho Patient awaiting acceptance into SNF, as he has this pain in the leg and has no help at home. History Interval history: Patient seen and examined, still complains of leg pain on the right knee Hospitalist Physical - Physical exam Narrative exam: Gen: WDWN, NAD, Awake, Alert, Oriented, HEENT: NCAT, EOMI, PERRL, OP Clear Neck: supple, no adenopathy, no thyromegaly, no JVD CVS/Heart: RRR, normal S1S2, pulses present bilaterally Chest/Lungs: CTA B, Symmetrical chest expansion, good air entry bilaterally GI/Abdomen: soft, NTND, good bowel sounds, no guarding or rebound /Bladder: no suprapubic tenderness, no CVA or paraspinal tenderness Extermity/Skin: right knee and leg swelling no obvious rash, tender MSK: FROM x 3, right knee LROM Neuro: CN 2-12 grossly intact, no new focal deficits Psych: calm - Constitutional Vitals: Temp Pulse Resp BP Pulse Ox 98.0 F 65 20 150/84 99 08/27/18 11:12 08/27/18 11:12 08/27/18 13:18 08/27/18 11:12 08/27/18 12:43 General appearance: Present: no acute distress, well-nourished Results - Labs CBC & Chem 7: 08/25/18 04:16 08/25/18 04:16 Labs: Laboratory Last Values WBC 8.5 K/mm3 (4.5-11.0) 08/25/18 04:16 RBC 3.64 M/mm3 (3.65-5.03) L 08/25/18 04:16 Hgb 10.9 gm/dl (11.8-15.2) L 08/25/18 04:16 Hct 31.9 % (35.5-45.6) L 08/25/18 04:16 MCV 88 fl (84-94) 08/25/18 04:16 MCH 30 pg (28-32) 08/25/18 04:16 MCHC 34 % (32-34) 08/25/18 04:16 RDW 14.3 % (13.2-15.2) 08/25/18 04:16 Plt Count 232 K/mm3 (140-440) 08/25/18 04:16 Lymph % (Auto) 12.7 % (13.4-35.0) L 08/18/18 10:45 [place] % (Auto) 5.4 % (0.0-7.3) 08/18/18 10:45 Eos % (Auto) 1.3 % (0.0-4.3) 08/18/18 10:45 Baso % (Auto) 0.6 % (0.0-1.8) 08/18/18 10:45 Lymph # 1.3 K/mm3 (1.2-5.4) 08/18/18 10:45 [place] # 0.5 K/mm3 (0.0-0.8) 08/18/18 10:45 Eos # 0.1 K/mm3 (0.0-0.4) 08/18/18 10:45 Baso # 0.1 K/mm3 (0.0-0.1) 08/18/18 10:45 Seg Neutrophils % 80.0 % (40.0-70.0) H 08/18/18 10:45 Seg Neutrophils # 7.9 K/mm3 (1.8-7.7) H 08/18/18 10:45 Sodium 144 mmol/L (137-145) 08/25/18 04:16 Potassium 3.5 mmol/L (3.6-5.0) L 08/25/18 04:16 Chloride 101.4 mmol/L (98-107) 08/25/18 04:16 Carbon Dioxide 33 mmol/L (22-30) H 08/25/18 04:16 13 mmol/L 08/25/18 04:16 BUN 22 mg/dL (9-20) H 08/25/18 04:16 1.1 mg/dL (0.8-1.5) 08/25/18 04:16 Estimated GFR > 60 ml/min 08/25/18 04:16 20 % 08/25/18 04:16 Glucose 114 mg/dL (75-100) H 08/25/18 04:16 POC Glucose 113 (70-105) H 08/21/18 10:48 Calcium 7.3 mg/dL (8.4-10.2) L 08/25/18 04:16 0.80 mg/dL (0.1-1.2) 08/18/18 10:45 AST 16 units/L (5-40) 08/18/18 10:45 ALT 15 units/L (7-56) 08/18/18 10:45 96 units/L (35-129) 08/18/18 10:45 7.5 g/dL (6.3-8.2) 08/18/18 10:45 3.8 g/dL (3.9-5) L 08/18/18 10:45 1.0 % 08/18/18 10:45 Active Medications - Current Medications Current Medications: Generic Name Dose Route Start Last Admin Trade Name Freq PRN Reason Stop Dose Admin Acetaminophen/Hydrocodone Bitart 1 each 08/21/18 10:18 08/27/18 13:18 [place] 5/325 PO 1 each Q6H PRN Administration Pain, Moderate (4-6) Apixaban 10 mg 08/25/18 12:00 08/27/18 10:16 Eliquis PO 08/31/18 22:01 10 mg Q12HR SHARAN Administration Protocol Apixaban 5 mg 09/01/18 10:00 Eliquis PO Q12HR SHARAN Fentanyl 100 mcg 08/21/18 06:00 08/21/18 07:34 Sublimaze IV 100 mcg ONCE PRN Administration sedation for nerve block Morphine Sulfate 4 mg 08/21/18 10:18 08/27/18 10:17 Morphine IV 4 mg Q4H PRN Administration Pain , Severe (7-10) Nifedipine 60 mg 08/23/18 22:00 08/27/18 10:16 Procardia Xl PO 60 mg DAILY SHARAN Administration Ondansetron HCl 4 mg 08/21/18 10:18 08/25/18 17:11 Zofran IV 4 mg Q8H PRN Administration Nausea And Vomiting Sodium Chloride 10 ml 08/21/18 11:00 Sodium Chloride Flush Syringe 10 Ml IV PRN SHARAN
--- NOTE | 2018-08-27 15:04 | Progress Note ---
Assessment and Plan Status post right total knee replacement with postoperative DVT right calf Recommendations- continue physical therapy and rehabilitation awaiting placement either shelter facility or patient's home Subjective Date of service: 08/27/18 Interval history: Still complaining of severe right leg pain and swelling states he is unable to participate with physical therapy... Family members and lateral discuss placement to a shelter facility with family members Objective Vital signs: Vital Signs - 12hr 08/27/18 08/27/18 08/27/18 05:17 05:42 06:12 Temperature 99.1 F 99.1 F Pulse Rate 72 Respiratory 17 20 Rate Blood Pressure 126/73 Blood Pressure [Right] O2 Sat by Pulse 95 Oximetry 08/27/18 08/27/18 08/27/18 07:18 08:00 10:17 Temperature 97.6 F 97.6 F Pulse Rate 70 Respiratory 18 18 20 Rate Blood Pressure 147/78 Blood Pressure 147/78 [Right] O2 Sat by Pulse 98 Oximetry 08/27/18 08/27/18 08/27/18 11:12 12:43 13:18 Temperature 98.0 F Pulse Rate 65 Respiratory 18 20 Rate Blood Pressure 150/84 Blood Pressure [Right] O2 Sat by Pulse 95 99 Oximetry - Labs CBC & BMP: 08/25/18 04:16 08/25/18 04:16
--- NOTE | 2018-08-28 08:46 | Progress Note ---
Assessment and Plan Assessment and plan: Patient is a 68 yo man with a history of hypertension and OA who presented to [facility] ED for elective Right TKR. Hospitalist consulted for hypertension Right lower ext acute DVT: Started on Eliquis. Plan discussed with the patient. Considering the patient was on dvt prophylaxis with this, will recommend outpatient hematology eval Hypertension: low salt diet OA s/p Right TKR: per Ortho Cellulitis, right lower ext- Keflex added Drop HCT, steady Right knee pain: Hypokalemia, replete DVT per Ortho Dispo per Ortho Patient awaiting acceptance into SNF due to not being able to participate in PT secondary to leg pain, surgery following. also has no help at home. Cleared from medical standpoing History Interval history: Patient seen and examined, still complains of leg pain on the right knee Hospitalist Physical - Physical exam Narrative exam: Gen: WDWN, NAD, Awake, Alert, Oriented, HEENT: NCAT, EOMI, PERRL, OP Clear Neck: supple, no adenopathy, no thyromegaly, no JVD CVS/Heart: RRR, normal S1S2, pulses present bilaterally Chest/Lungs: CTA B, Symmetrical chest expansion, good air entry bilaterally GI/Abdomen: soft, NTND, good bowel sounds, no guarding or rebound /Bladder: no suprapubic tenderness, no CVA or paraspinal tenderness Extermity/Skin: right knee and leg swelling no obvious rash, tender MSK: FROM x 3, right knee LROM Neuro: CN 2-12 grossly intact, no new focal deficits Psych: calm - Constitutional Vitals: Temp Pulse Resp BP Pulse Ox 99.5 F 71 19 114/69 94 08/28/18 03:54 08/28/18 03:54 08/28/18 03:54 08/28/18 03:54 08/28/18 03:54 General appearance: Present: no acute distress, well-nourished Results - Labs CBC & Chem 7: 08/25/18 04:16 08/25/18 04:16 Labs: Laboratory Last Values WBC 8.5 K/mm3 (4.5-11.0) 08/25/18 04:16 RBC 3.64 M/mm3 (3.65-5.03) L 08/25/18 04:16 Hgb 10.9 gm/dl (11.8-15.2) L 08/25/18 04:16 Hct 31.9 % (35.5-45.6) L 08/25/18 04:16 MCV 88 fl (84-94) 08/25/18 04:16 MCH 30 pg (28-32) 08/25/18 04:16 MCHC 34 % (32-34) 08/25/18 04:16 RDW 14.3 % (13.2-15.2) 08/25/18 04:16 Plt Count 232 K/mm3 (140-440) 08/25/18 04:16 Lymph % (Auto) 12.7 % (13.4-35.0) L 08/18/18 10:45 [place] % (Auto) 5.4 % (0.0-7.3) 08/18/18 10:45 Eos % (Auto) 1.3 % (0.0-4.3) 08/18/18 10:45 Baso % (Auto) 0.6 % (0.0-1.8) 08/18/18 10:45 Lymph # 1.3 K/mm3 (1.2-5.4) 08/18/18 10:45 [place] # 0.5 K/mm3 (0.0-0.8) 08/18/18 10:45 Eos # 0.1 K/mm3 (0.0-0.4) 08/18/18 10:45 Baso # 0.1 K/mm3 (0.0-0.1) 08/18/18 10:45 Seg Neutrophils % 80.0 % (40.0-70.0) H 08/18/18 10:45 Seg Neutrophils # 7.9 K/mm3 (1.8-7.7) H 08/18/18 10:45 Sodium 144 mmol/L (137-145) 08/25/18 04:16 Potassium 3.5 mmol/L (3.6-5.0) L 08/25/18 04:16 Chloride 101.4 mmol/L (98-107) 08/25/18 04:16 Carbon Dioxide 33 mmol/L (22-30) H 08/25/18 04:16 13 mmol/L 08/25/18 04:16 BUN 22 mg/dL (9-20) H 08/25/18 04:16 1.1 mg/dL (0.8-1.5) 08/25/18 04:16 Estimated GFR > 60 ml/min 08/25/18 04:16 20 % 08/25/18 04:16 Glucose 114 mg/dL (75-100) H 08/25/18 04:16 POC Glucose 113 (70-105) H 08/21/18 10:48 Calcium 7.3 mg/dL (8.4-10.2) L 08/25/18 04:16 0.80 mg/dL (0.1-1.2) 08/18/18 10:45 AST 16 units/L (5-40) 08/18/18 10:45 ALT 15 units/L (7-56) 08/18/18 10:45 96 units/L (35-129) 08/18/18 10:45 7.5 g/dL (6.3-8.2) 08/18/18 10:45 3.8 g/dL (3.9-5) L 08/18/18 10:45 1.0 % 08/18/18 10:45 Active Medications - Current Medications Current Medications: Generic Name Dose Route Start Last Admin Trade Name Freq PRN Reason Stop Dose Admin Acetaminophen/Hydrocodone Bitart 1 each 08/21/18 10:18 08/27/18 22:01 [place] 5/325 PO 1 each Q6H PRN Administration Pain, Moderate (4-6) Apixaban 10 mg 08/25/18 12:00 08/27/18 21:58 Eliquis PO 08/31/18 22:01 10 mg Q12HR SHARAN Administration Protocol Apixaban 5 mg 09/01/18 10:00 Eliquis PO Q12HR SHARAN Fentanyl 100 mcg 08/21/18 06:00 08/21/18 07:34 Sublimaze IV 100 mcg ONCE PRN Administration sedation for nerve block Morphine Sulfate 4 mg 08/21/18 10:18 08/27/18 15:30 Morphine IV 4 mg Q4H PRN Administration Pain , Severe (7-10) Nifedipine 60 mg 08/23/18 22:00 08/27/18 10:16 Procardia Xl PO 60 mg DAILY SHARAN Administration Ondansetron HCl 4 mg 08/21/18 10:18 06/24/19 17:11 Zofran IV 4 mg Q8H PRN Administration Nausea And Vomiting Sodium Chloride 10 ml 08/21/18 11:00 Sodium Chloride Flush Syringe 10 Ml IV PRN SHARAN
[2018-08-28] MEDS: PROCARDIA XL PO SCH (10:38)
[2018-08-28] MEDS: ELIQUIS PO SCH ×2 (10:38→21:42)
[2018-08-28] MEDS: MORPHINE IV PRN (10:40)
[2018-08-28] MEDS: NORCO 5/325 PO PRN ×2 (14:01→21:42)
[2018-08-28] MEDS: KEFLEX PO SCH ×2 (14:01→18:20)
[2018-08-29] MEDS: KEFLEX PO SCH ×3 (01:16→06:16)
[2018-08-29] MEDS: NORCO 5/325 PO PRN (10:53)
[2018-08-29] MEDS: ELIQUIS PO SCH (10:54)
[2018-08-29 10:59] VITALS: BP 146/83
--- NOTE | 2018-08-29 11:31 | Progress Note ---
Assessment and Plan Assessment and plan: Patient is a 68 yo man with a history of hypertension and OA who presented to [facility] ED for elective Right TKR. Hospitalist consulted for hypertension Right lower ext acute DVT: -Not present on admission. Started on Eliquis. Plan discussed with the patient. Considering the patient was on dvt prophylaxis with this, will recommend outpatient hematology eval Hypertension: low salt diet OA s/p Right TKR: per Ortho Cellulitis, right lower ext- Keflex added. Not present on admission Drop HCT, steady Right knee pain: Hypokalemia, replete DVT per Ortho Dispo per Ortho Patient awaiting acceptance into SNF due to not being able to participate in PT secondary to leg pain, surgery following. also has no help at home. Cleared from medical standpoing History Interval history: Patient seen and examined, still complains of leg pain on the right knee now improving Hospitalist Physical - Physical exam Narrative exam: Gen: WDWN, NAD, Awake, Alert, Oriented, HEENT: NCAT, EOMI, PERRL, OP Clear Neck: supple, no adenopathy, no thyromegaly, no JVD CVS/Heart: RRR, normal S1S2, pulses present bilaterally Chest/Lungs: CTA B, Symmetrical chest expansion, good air entry bilaterally GI/Abdomen: soft, NTND, good bowel sounds, no guarding or rebound /Bladder: no suprapubic tenderness, no CVA or paraspinal tenderness Extermity/Skin: right knee and leg swelling no obvious rash, tender MSK: FROM x 3, right knee LROM Neuro: CN 2-12 grossly intact, no new focal deficits Psych: calm - Constitutional Vitals: Temp Pulse Resp BP Pulse Ox 98.9 F 73 18 146/83 95 08/29/18 08:05 08/29/18 08:05 08/29/18 08:05 08/29/18 08:05 08/29/18 09:02 General appearance: Present: no acute distress, well-nourished Results - Labs CBC & Chem 7: 08/25/18 04:16 08/25/18 04:16 Labs: Laboratory Last Values WBC 8.5 K/mm3 (4.5-11.0) 08/25/18 04:16 RBC 3.64 M/mm3 (3.65-5.03) L 08/25/18 04:16 Hgb 10.9 gm/dl (11.8-15.2) L 08/25/18 04:16 Hct 31.9 % (35.5-45.6) L 08/25/18 04:16 MCV 88 fl (84-94) 08/25/18 04:16 MCH 30 pg (28-32) 08/25/18 04:16 MCHC 34 % (32-34) 08/25/18 04:16 RDW 14.3 % (13.2-15.2) 08/25/18 04:16 Plt Count 232 K/mm3 (140-440) 08/25/18 04:16 Lymph % (Auto) 12.7 % (13.4-35.0) L 08/18/18 10:45 [place] % (Auto) 5.4 % (0.0-7.3) 08/18/18 10:45 Eos % (Auto) 1.3 % (0.0-4.3) 08/18/18 10:45 Baso % (Auto) 0.6 % (0.0-1.8) 08/18/18 10:45 Lymph # 1.3 K/mm3 (1.2-5.4) 08/18/18 10:45 [place] # 0.5 K/mm3 (0.0-0.8) 08/18/18 10:45 Eos # 0.1 K/mm3 (0.0-0.4) 08/18/18 10:45 Baso # 0.1 K/mm3 (0.0-0.1) 08/18/18 10:45 Seg Neutrophils % 80.0 % (40.0-70.0) H 08/18/18 10:45 Seg Neutrophils # 7.9 K/mm3 (1.8-7.7) H 08/18/18 10:45 Sodium 144 mmol/L (137-145) 08/25/18 04:16 Potassium 3.5 mmol/L (3.6-5.0) L 08/25/18 04:16 Chloride 101.4 mmol/L (98-107) 08/25/18 04:16 Carbon Dioxide 33 mmol/L (22-30) H 08/25/18 04:16 13 mmol/L 08/25/18 04:16 BUN 22 mg/dL (9-20) H 08/25/18 04:16 1.1 mg/dL (0.8-1.5) 08/25/18 04:16 Estimated GFR > 60 ml/min 08/25/18 04:16 20 % 08/25/18 04:16 Glucose 114 mg/dL (75-100) H 08/25/18 04:16 POC Glucose 113 (70-105) H 08/21/18 10:48 Calcium 7.3 mg/dL (8.4-10.2) L 08/25/18 04:16 0.80 mg/dL (0.1-1.2) 08/18/18 10:45 AST 16 units/L (5-40) 08/18/18 10:45 ALT 15 units/L (7-56) 08/18/18 10:45 96 units/L (35-129) 08/18/18 10:45 7.5 g/dL (6.3-8.2) 08/18/18 10:45 3.8 g/dL (3.9-5) L 08/18/18 10:45 1.0 % 08/18/18 10:45 Active Medications - Current Medications Current Medications: Generic Name Dose Route Start Last Admin Trade Name Freq PRN Reason Stop Dose Admin Acetaminophen/Hydrocodone Bitart 1 each 08/21/18 10:18 08/29/18 10:53 [place] 5/325 PO 1 each Q6H PRN Administration Pain, Moderate (4-6) Apixaban 10 mg 08/25/18 12:00 08/29/18 10:54 Eliquis PO 08/31/18 22:01 10 mg Q12HR SHARAN Administration Protocol Apixaban 5 mg 09/01/18 10:00 Eliquis PO Q12HR SHARAN Cephalexin 500 mg 08/28/18 11:00 08/29/18 06:16 Keflex PO 500 mg Q6HR SHARAN Administration Fentanyl 100 mcg 08/21/18 06:00 08/21/18 07:34 Sublimaze IV 100 mcg ONCE PRN Administration sedation for nerve block Morphine Sulfate 4 mg 08/21/18 10:18 08/28/18 10:40 Morphine IV 4 mg Q4H PRN Administration Pain , Severe (7-10) Nifedipine 60 mg 08/23/18 22:00 08/28/18 10:38 Procardia Xl PO 60 mg DAILY SHARAN Administration Ondansetron HCl 4 mg 08/21/18 10:18 08/25/18 17:11 Zofran IV 4 mg Q8H PRN Administration Nausea And Vomiting Sodium Chloride 10 ml 08/21/18 11:00 Sodium Chloride Flush Syringe 10 Ml IV PRN SHARAN Nutrition/Malnutrition Assess - Dietary Evaluation Nutrition/Malnutrition Findings: Nutrition Notes Start: 08/28/18 15: 39 Freq: Status: Active Protocol: Document 08/28/18 15:39 RM (Rec: 08/28/18 15:40 RM [id number]) Nutrition Notes Need for Assessment generated from: LOS Initial or Follow up Brief Note Height 5 ft 5 in Weight 108.862 kg [place] Body Weight (kg) 61.81 BMI 39.9 Subjective/Other Information Screened for LOS. Recorded PO intake 75% X 5 meals. Nutrition Intervention Revisit per MD consult or patient Sign Off request:
[2018-09-01] MEDS ORDERED: ELIQUIS PO SCH (10:00)
== END 2018-08-29 15:30 | disposition home health service (06) | DRG 470 ==
LOC: 3A 05:49 → 3B-SURG 10:53
PROVIDERS: ADMIT Orthopaedic Surgery; ATTEND Orthopaedic Surgery
PROC: 0SRC0J9 Replacement of Right Knee Joint with Synthetic Substitute, Cemented, Open Approach (ICD-10-PCS; principal; 2018-08-21)
PROC: 3E0T3BZ Introduction of Anesthetic Agent into Peripheral Nerves and Plexi, Percutaneous Approach (ICD-10-PCS; 2018-08-21)
DX: M17.11 Unilateral primary osteoarthritis, right knee (principal); F17.210 Nicotine dependence, cigarettes, uncomplicated; I10 Essential (primary) hypertension; K21.9 Gastro-esophageal reflux disease without esophagitis; E66.9 Obesity, unspecified; E87.6 Hypokalemia; E11.9 Type 2 diabetes mellitus without complications; I25.2 Old myocardial infarction; Z68.39 Body mass index [BMI] 39.0-39.9, adult; Z79.84 Long term (current) use of oral hypoglycemic drugs
CPT/HCPCS: 36415; 64450; 80048; 80053; 82962; 85014; 85018; 85025; 85027; 88304; 88305; 88311; 94760; G0378; C1776; J0690; J1650; J1885; J2250; J2270; J2405; J2704; J2710; J3010; J7030; J7120

== ENCOUNTER 2018-09-02 09:27 | Outpatient (CLI) | payer MEDICARE ==
[2018-09-02 10:47] LABS: Calcium 8.6 mg/dL (8.4-10.2); Chol/HDL Ratio 5.2 %
[2018-09-05 15:08] LABS: Vitamin D, 25-OH, D2 <4 ng/mL
== END 2018-09-02 09:28 | disposition home or self-care (01) ==
LOC: LAB 09:27
PROVIDERS: ATTEND Internal Medicine
DX: E66.9 Obesity, unspecified (principal); E11.9 Type 2 diabetes mellitus without complications; E66.1 Drug-induced obesity; I10 Essential (primary) hypertension; K21.9 Gastro-esophageal reflux disease without esophagitis
CPT/HCPCS: 36415; 80061; 82306; 82310; 83036

== ENCOUNTER 2018-12-24 07:59 | Outpatient (CLI) | payer MEDICARE ==
--- NOTE | 2018-12-24 09:06 | Vascular Lab Report ---
DUPLEX DOPPLER LOWER EXTREMITY VEINS, BILATERAL INDICATION: I82.890 ACUTE EMBOLISM AND THROMBOSIS OF OTHER SPECIFIED VEINS. TECHNIQUE: Duplex doppler imaging was performed through the veins of both lower extremities using ve nous compression and other maneuvers. COMPARISON: 08/25/2018. FINDINGS: Right Common femoral vein: Negative. Right Superficial femoral vein: Negative. Right Popliteal vein: Negative. Right Calf veins: Negative. Left Common femoral vein: Negative. Left Superficial femoral vein: Negative. Left Popliteal vein: Negative. Left Calf veins: Negative. Additional findings: None.. IMPRESSION: No sonographic evidence for DVT in either lower extremity. Thrombosis of the right posterior tibial and peroneal veins has resolved since the previous exam. Signer Name: Nacho Mcgarry Jr, MD Signed: 12/24/2018 9:02 AM Workstation Name: [id number]
== END 2018-12-24 08:00 | disposition home or self-care (01) ==
LOC: VAS 07:59
PROVIDERS: ATTEND Internal Medicine
DX: I82.890 Acute embolism and thrombosis of other specified veins (principal); Z72.89 Other problems related to lifestyle; I10 Essential (primary) hypertension; G47.30 Sleep apnea, unspecified; K21.9 Gastro-esophageal reflux disease without esophagitis; E11.9 Type 2 diabetes mellitus without complications; Z96.651 Presence of right artificial knee joint; Z72.0 Tobacco use
CPT/HCPCS: 93970

== ENCOUNTER 2019-01-21 08:08 | Day surgery (SDC) | payer MEDICARE ==
[2019-01-21] MEDS ORDERED: ASPIRIN EC 325 MG TAB PO ONE ×2 (08:59→09:01)
[2019-01-21] MEDS: SODIUM CHLORIDE 0.9% 500 ML 500 ML IV SCH ×3 (09:03→10:50)
[2019-01-21 09:08] LABS: Basophils # (Auto) 0.1 K/mm3 (0.0-0.1); Eosinophils # (Auto) 0.4 K/mm3 (0.0-0.4); Eosinophils % (Auto) 4.4 % (0.0-4.3); Hematocrit 39.4 % (35.5-45.6); Hemoglobin 13.3 gm/dl (11.8-15.2); Lymphocytes # (Auto) 2.5 K/mm3 (1.2-5.4); Lymphocytes % (Auto) 28.1 % (13.4-35.0); Mean Corpuscular HGB Conc 34 % (32-34); Mean Corpuscular Volume 85 fl (84-94); Monocytes # (Auto) 0.6 K/mm3 (0.0-0.8); Monocytes % (Auto) 6.7 % (0.0-7.3); Platelet Count 232 K/mm3 (140-440); Red Blood Count 4.66 M/mm3 (3.65-5.03); Red Cell Distribution Width 14.5 % (13.2-15.2)
[2019-01-21 09:22] LABS: BUN/Creatinine Ratio 14; Blood Urea Nitrogen 13 mg/dL (9-20)
[2019-01-21 09:23] LABS: Calcium 8.1 mg/dL (8.4-10.2); Hemolysis Index 3
[2019-01-21 09:30] LABS: Partial Thromboplastin Time 42.8 Sec. (24.2-36.6)
[2019-01-21] MEDS: MIDAZOLAM 2 MG/2 ML INJ ONE ×2 (10:22→10:58)
[2019-01-21] MEDS: LIDOCAINE (2%) 20 MG/1 ML VIAL 20 ML MDV INFILTRATI ONE ×2 (10:22→10:58)
[2019-01-21] MEDS: fentaNYL 100 MCG/2 ML INJ ONE ×2 (10:22→10:58)
[2019-01-21] MEDS: VERAPAMIL 5 MG/2 ML INJ ONE ×3 (10:26→11:01)
[2019-01-21] MEDS: HEPARIN 10,000 UNITS/10 ML VIAL ONE ×3 (10:26→11:01)
[2019-01-21] MEDS: HEPARIN/NS 5000 UNIT/500ML 1,000 ML IR ONE ×2 (10:27→10:50)
[2019-01-21] MEDS: NITROGLYCERIN SYRINGE 3 ML ONE ×2 (10:28→11:01)
[2019-01-21] MEDS ORDERED: traMADol 50 MG TAB PO PRN (11:13)
[2019-01-21] MEDS ORDERED: HYDROcodone/ACETAMINOPHEN 5-325 MG TAB PO PRN (11:13)
--- NOTE | 2019-01-21 11:34 | Cardiac Catherization Report ---
ATTENDING PHYSICIAN: Dr. Brent Browne. PROCEDURES: Left heart catheterization. INDICATIONS FOR PROCEDURE: Recurrent chest pain with abnormal stress test, revealing small area of reversible anterior ischemia. COMPLICATIONS: None. ESTIMATED BLOOD LOSS: Less than 30 mL. ESTIMATED CONTRAST USED: 70 mL. SEDATION START TIME: 10:58. SEDATION END TIME: 11:08. PROCEDURE IN DETAIL: The patient was brought to the cardiac catheterization lab in usual fasting state. The patient was prepped and draped in the usual sterile fashion. A 2 mL of 1% lidocaine was injected around the right radial artery and a 6-Vietnamese sheath was placed via a modified Seldinger technique. Next, a Oxford catheter was advanced over the wire across the aortic valve into the left ventricle. Left ventricular pressures were measured. Left ventriculogram was performed via hand injection and then, pullback pressure was measured across the aortic valve. Oxford catheter was engaged into the left main and right coronary ostia and angiography was performed in multiple views. Oxford catheter was then removed over the wire. RESULTS: Aortic pressure measured 132/77, left ventricular pressure measured at 136/14 with an end-diastolic pressure of 29 mmHg. Left main coronary artery is a large caliber short vessel that bifurcates into left anterior descending and left circumflex coronary arteries. Left main coronary artery shows no significant disease. The left circumflex coronary artery is a large caliber nondominant vessel with luminal irregularities without significant stenosis. The left anterior descending coronary artery is a large caliber vessel with a proximal 20% lesion. The remainder of the vessel shows luminal irregularities without significant stenosis. The right coronary artery is a large caliber dominant vessel with luminal irregularities without significant stenosis. CONCLUSIONS: No significant coronary artery disease in a right dominant system. Normal left ventricular function with ejection fraction of 50-55%. RECOMMENDATIONS: Recommend aggressive risk factor modification and evaluation for noncardiac causes of chest pain. JOB# [id number] MR/NTS
[2019-01-21] MEDS ORDERED: SODIUM CHLORIDE 0.9% 1000 ML 1,000 ML IV SCH (12:00)
[2019-01-21 13:31] VITALS: BP 117/79
== END 2019-01-21 14:10 | disposition home or self-care (01) ==
LOC: CATHLABREC 08:08
PROVIDERS: ATTEND Internal Medicine Cardiovascular Disease
DX: R07.89 Other chest pain (principal); R94.39 Abnormal result of other cardiovascular function study; R07.2 Precordial pain; I10 Essential (primary) hypertension; G47.30 Sleep apnea, unspecified; K21.9 Gastro-esophageal reflux disease without esophagitis; E66.9 Obesity, unspecified; M19.90 Unspecified osteoarthritis, unspecified site; E11.9 Type 2 diabetes mellitus without complications; Z98.890 Other specified postprocedural states; Z79.899 Other long term (current) drug therapy; Z79.84 Long term (current) use of oral hypoglycemic drugs; Z79.01 Long term (current) use of anticoagulants; Z68.41 Body mass index [BMI] 40.0-44.9, adult; Z82.49 Family history of ischemic heart disease and other diseases of the circulatory system
CPT/HCPCS: 36415; 80048; 85025; 85610; 85730; 93005; 93010; 93458; 99156; C1887; C1894; J1644; J2250; J3010; J7040; Q9967

== ENCOUNTER 2021-11-01 12:39 | Outpatient (CLI) | payer MEDICARE ==
[2021-11-01 13:17] LABS: Basophils # (Auto) 0.1 K/mm3 (0.0-0.1); Basophils % (Auto) 1.3 % (0.0-1.8); Eosinophils # (Auto) 0.4 K/mm3 (0.0-0.4); Eosinophils % (Auto) 4.3 % (0.0-4.3); Hematocrit 42.9 % (35.5-45.6); Hemoglobin 14.7 gm/dl (11.8-15.2); Lymphocytes # (Auto) 2.5 K/mm3 (1.2-5.4); Lymphocytes % (Auto) 28.9 % (13.4-35.0); Mean Corpuscular HGB Conc 34 % (32-34); Mean Corpuscular Volume 83 fl (84-94); Monocytes # (Auto) 0.6 K/mm3 (0.0-0.8); Monocytes % (Auto) 6.5 % (0.0-7.3); Platelet Count 220 K/mm3 (140-440); Red Blood Count 5.18 M/mm3 (3.65-5.03); Red Cell Distribution Width 14.9 % (13.2-15.2)
[2021-11-01 13:30] LABS: Creatinine,Urine < 4.2 mg/dL (0.1-20.0)
[2021-11-01 14:45] LABS: Alanine Aminotransferase 22 units/L (7-56); Albumin 4.4 g/dL (3.9-5); BUN/Creatinine Ratio 16; Blood Urea Nitrogen 18 mg/dL (9-20); Calcium 8.3 mg/dL (8.4-10.2); Chol/HDL Ratio 4.63 %; HDL Cholesterol 44 mg/dL (40-59); Hemolysis Index 6; LDL Cholesterol,Direct 131 mg/dL (50-130)
== END 2021-11-01 12:40 | disposition home or self-care (01) ==
LOC: LABHHL 12:39
PROVIDERS: ATTEND Internal Medicine
DX: R35.1 Nocturia (principal); E11.9 Type 2 diabetes mellitus without complications; E55.9 Vitamin D deficiency, unspecified; E78.5 Hyperlipidemia, unspecified; I10 Essential (primary) hypertension; R53.83 Other fatigue; Z00.00 Encounter for general adult medical examination without abnormal findings
CPT/HCPCS: 36415; 80053; 80061; 82043; 82306; 83036; 84153; 84443; 85025